=== PATIENT | female | born 1975 | race African-American/Black ===

== ENCOUNTER 2016-08-27 16:52 | Inpatient (IN) | payer OTHER ==
[~2016-08-27] VITALS: Ht 162.6 cm; Wt 84.8 kg
[2016-08-27] MEDS ORDERED: SODIUM CHLORIDE 0.9% 1,000 ML IV ONE (17:55)
[2016-08-27 18:22] LABS: BASOPHILS % 0.8 % (0.0-2.0); EOSINOPHILS % 2.7 % (0.0-5.0); HEMATOCRIT. 37.4 % (36.0-48.0); HEMOGLOBIN. 12.2 g/dL (12.0-16.0); LYMPHOCYTES % 22.5 % (20.0-50.0); MEAN CORPUSCULAR HEMOGLOBIN 28.8 pg (28.0-32.0); MEAN CORPUSCULAR HGB CONC 32.8 g/dL (31.0-37.0); MEAN PLATELET VOLUME 6.7 fl (7.4-10.4); MONOCYTES % 8.3 % (2.0-8.0); NEUTROPHILS % 65.7 % (40.0-76.0); PLATELET 506 x1000/uL (130-400); RED BLOOD CELL COUNT 4.25 mill/uL (4.2-5.4); RED CELL DISTRIBUTION WIDTH 17.4 % (11.6-14.6); WHITE BLOOD COUNT 6.6 x1000/uL (4.5-11.0)
[2016-08-27 18:32] LABS: ANION GAP 12; CALCIUM 9.1 mg/dL (8.5-10.1); CARBON DIOXIDE 28 mEq/L (21-32); CHLORIDE 107 mEq/L (98-107); INDEX HEMOLYSI 1 (1-3); INDEX ICTERIC 1 (1-4); INDEX LIPEMIC 1 (1-3); UREA NITROGEN BLOOD 16 mg/dL (7-21)
[2016-08-27 18:33] LABS: eGFR > 60 mL/min (>60)
[2016-08-27 18:41] LABS: HCG SCREEN NEGATIVE
[2016-08-27 19:03] LABS: D-DIMER 0.27 mg/L FEU (<0.50); PARTIAL THROMBOPLASTIN TIME 25.8 sec (24.0-34.0); PROTHROMBIN TIME 10.5 sec
[2016-08-27 20:04] LABS: ALANINE AMINOTRANSFERASE 8 IU/L (13-61); ALBUMIN 4.1 g/dL (3.4-5.0); BILIRUBIN DIRECT < 0.1 mg/dL (0.0-0.2); ETHANOL BLOOD < 10 mg/dL; INDEX HEMOLYSI 1 (1-3); INDEX ICTERIC 1 (1-4); INDEX LIPEMIC 1 (1-3)
[2016-08-27] MEDS ORDERED: ASPIRIN 325MG EC TABLET PO ONE (20:45)
[2016-08-27 21:00] LABS: AMMONIA 27 uMol/L (<32)
[2016-08-27] MEDS ORDERED: ACETAMINOPHEN 325MG TABLET PO PRN (23:00)
[2016-08-27] MEDS ORDERED: CLONIDINE 0.1MG TABLET PO PRN (23:00)
[2016-08-27] MEDS ORDERED: ONDANSETRON HCL 4MG/2ML VIAL IV PRN (23:00)
[2016-08-27] MEDS ORDERED: IPRATROPIUM/ALBUTEROL 0.5-3(2.5)MG/3ML NEB INH PRN (23:00)
[2016-08-27] MEDS ORDERED: MAGNESIUM/ALUMINUM HYDROXIDE/SIMETHICONE 30ML UDC PO PRN (23:00)
[2016-08-28 01:30] VITALS: BP 133/90
[2016-08-28] MEDS ORDERED: SODIUM CHLORIDE 0.9% 1,000 ML IV SCH (01:47)
[2016-08-28 02:38] LABS: BASOPHILS % 1.4 % (0.0-2.0); EOSINOPHILS % 4.8 % (0.0-5.0); HEMATOCRIT. 33.3 % (36.0-48.0); HEMOGLOBIN. 10.9 g/dL (12.0-16.0); LYMPHOCYTES % 31.7 % (20.0-50.0); MEAN CORPUSCULAR HEMOGLOBIN 28.9 pg (28.0-32.0); MEAN CORPUSCULAR HGB CONC 32.7 g/dL (31.0-37.0); MEAN CORPUSCULAR VOLUME 88.2 fL (81.0-99.0); MEAN PLATELET VOLUME 6.7 fl (7.4-10.4); MONOCYTES % 8.9 % (2.0-8.0); NEUTROPHILS % 53.2 % (40.0-76.0); PLATELET 444 x1000/uL (130-400); RED BLOOD CELL COUNT 3.77 mill/uL (4.2-5.4); RED CELL DISTRIBUTION WIDTH 16.9 % (11.6-14.6); WHITE BLOOD COUNT 6.2 x1000/uL (4.5-11.0)
[2016-08-28] MEDS ORDERED: IBUP-1509 PO (02:52)
[2016-08-28] MEDS ORDERED: MIRT45TA4 PO (02:52)
[2016-08-28] MEDS ORDERED: FLUP1TAB MT (02:52)
[2016-08-28] MEDS ORDERED: HYDR10SY11 PO (02:52)
[2016-08-28 02:54] LABS: ALANINE AMINOTRANSFERASE 15 IU/L (13-61); ALBUMIN 3.4 g/dL (3.4-5.0); ANION GAP 12; CALCIUM 8.2 mg/dL (8.5-10.1); CARBON DIOXIDE 25 mEq/L (21-32); CHLORIDE 111 mEq/L (98-107); CREATINE KINASE 140 IU/L (26-192); CREATINE KINASE MB FRACTION 0.6 ng/mL (0.5-3.6); HDL CHOLESTEROL 68 mg/dL (40-59); INDEX HEMOLYSI 1 (1-3); INDEX ICTERIC 1 (1-4); INDEX LIPEMIC 1 (1-3); LDL CHOLESTEROL 100 mg/dL (5-100); MAGNESIUM 1.8 mg/dL (1.8-2.4); TRIGLYCERIDE 33 mg/dL (0-150); TROPONIN I < 0.02 ng/mL (0.00-0.04); UREA NITROGEN BLOOD 13 mg/dL (7-21); eGFR > 60 mL/min (>60)
[2016-08-28 04:00] VITALS: BP 132/75
[2016-08-28 08:00] VITALS: BP 127/90
[2016-08-28] MEDS ORDERED: ENOXAPARIN 40MG/0.4ML SYR SUBCUT SCH (09:00)
[2016-08-28] MEDS ORDERED: IBUPROFEN 600MG TABLET PO SCH (09:00)
[2016-08-28] MEDS ORDERED: POTASSIUM CHLORIDE 20MEQ TABLET SR PO NR (10:45)
[2016-08-28 11:35] LABS: CREATINE KINASE 151 IU/L (26-192); CREATINE KINASE MB FRACTION < 0.5 ng/mL (0.5-3.6); INDEX HEMOLYSI 1 (1-3)
[2016-08-28 11:37] VITALS: BP 127/90
[2016-08-28 15:18] LABS: HEPATITIS B SURFACE ANTIGEN NEGATIVE
[2016-08-28 15:46] LABS: HEPATITIS B CORE AB IGM NEGATIVE; HEPATITIS C VIR.AB < 0.02 INDEXVAL (0.00-0.80)
[2016-08-28 15:48] LABS: HEPATITIS A AB IGM NEGATIVE (NEGATIVE)
[2016-08-28] MEDS ORDERED: MIRTAZAPINE 15MG TABLET PO SCH (21:00)
[2016-08-28] MEDS ORDERED: HYDROXYZINE 25MG TABLET PO SCH (21:00)
[2016-08-28] MEDS ORDERED: FLUPHENAZINE HCL 1 MG PO SCH (21:00)
== END 2016-08-28 12:30 | disposition home or self-care (01) | DRG 756 ==
LOC: ER 16:52 → 8WST 20:34
PROVIDERS: ADMIT Internal Medicine; ATTEND Internal Medicine
DX: F41.9 Anxiety disorder, unspecified (principal); Z91.19 Patient's noncompliance with other medical treatment and regimen; E87.6 Hypokalemia; D64.9 Anemia, unspecified
CPT/HCPCS: 36415; 70450; 70551; 71010; 80048; 80053; 80061; 80076; 82140; 82550; 82553; 83735; 84443; 84484; 84703; 85025; 85379; 85610; 85730; 86705; 86709; 86803; 87040; 87340; 93005; 93970; 96360; 96361; 99285; G0482; J1650; J7030